=== PATIENT | female | born 1960 | race Caucasian/White ===

== ENCOUNTER → 2018-07-07 | Outpatient (CLI) | payer MEDICAID ==
[2018-07-07 16:21] LABS: LDL Cholesterol,Calculated 109.6 mg/dL (0.0-131.0); VLDL Calculation 32.4 mg/dL (5.00-40.00)
[2018-07-07 16:22] LABS: C Reactive Protein, High Sens 1.27 mg/L (0.000-3.000)
[2018-07-07 16:31] LABS: Insulin Level 10.5 mIU/mL (3.0-25.0); Vitamin D 25 Hydroxy 34.6 ng/mL (30.0-100.0)
[2018-07-07 16:52] LABS: Folate, Serum 23.3 ng/mL
== END ==
LOC: LABWHC1 07:39
PROVIDERS: ATTEND Pediatrics
DX: E78.5 Hyperlipidemia, unspecified (principal); E55.9 Vitamin D deficiency, unspecified; E88.89 Other specified metabolic disorders; R53.83 Other fatigue
CPT/HCPCS: 36415; 80061; 82306; 82607; 82746; 83525; 85384; 86141

== ENCOUNTER → 2019-06-02 | Outpatient (CLI) | payer MEDICAID ==
[2019-06-02 09:22] LABS: Basophils # (A) 0.1 k/uL (0-0.2); Basophils % (A) 1 %; Eosinophils # (A) 0.3 k/uL (0-0.7); Eosinophils % (A) 3 %; HCT 42.1 % (34.0-46.0); HGB 14.4 gm/dL (11.4-16.0); Lymphocytes # (A) 1.9 k/uL (1.0-4.8); Lymphocytes % (A) 20 %; MCHC 34.3 g/dL (31.0-37.0); MCV 87.6 fL (80.0-100.0); Mean Platelet Volume 7.3; Monocytes # (A) 0.5 k/uL (0-1.0); Monocytes % (A) 5 %; Neutrophils # (A) 6.4 k/uL (1.3-7.7); Neutrophils % (A) 69 %; Platelet Count 306 k/uL (150-450); RBC 4.81 m/uL (3.80-5.40); RDW 12.3 % (11.5-15.5); WBC 9.3 k/uL (3.8-10.6)
== END | disposition home or self-care (01) ==
LOC: LABWHC1 08:52
PROVIDERS: ATTEND Nurse Practitioner Family
DX: K92.1 Melena (principal)
CPT/HCPCS: 36415; 85025; 87328; 87329